=== PATIENT | male | born 2000 | race Caucasian/White ===

== ENCOUNTER → 2023-03-17 15:13 | Day surgery (SDC) | payer SELFPAY ==
[2023-04-08 01:45] LABS: HIV 1 & 2 Antigen Non-Reactive (Non-Reactiv)
[2023-04-08 01:46] LABS: HIV 1 & 2 Antibody Non-Reactive (Non-Reactiv)
== END ==
DX: Z53.9 Procedure and treatment not carried out, unspecified reason (principal)
CPT/HCPCS: 87806